=== PATIENT | male | born 1995 | race Caucasian/White ===

== ENCOUNTER 2017-05-11 20:01 | Emergency (ER) | payer OTHER ==
[2017-05-11] MEDS: KETOROLAC 60 MG/2 ML VIAL (J1885) IM (22:20)
== END 2017-05-11 23:39 | disposition home or self-care (01) ==
LOC: M ED 20:01
DX: S29.012A Strain of muscle and tendon of back wall of thorax, initial encounter (principal); X50.0XXA Overexertion from strenuous movement or load, initial encounter; Y92.89 Other specified places as the place of occurrence of the external cause; F17.210 Nicotine dependence, cigarettes, uncomplicated
CPT/HCPCS: J1885

== ENCOUNTER 2018-11-12 06:46 | Inpatient (IN) | payer OTHER ==
[~2018-11-12] VITALS: Ht 180.3 cm; Wt 75.0 kg
[2018-11-12] VITALS (8 sets, daily range): BP systolic 114–119; BP diastolic 58–76
[~2018-11-12 06:46] MED LIST: CYCL10TA PO; KETO10TAB PO
[2018-11-12] MEDS ORDERED: NS 1,000 ML IV ONE (07:15)
[2018-11-12] MEDS ORDERED: MORPHINE 4 MG/ML 1ML VIAL/SYRINGE (J2270) IV ONE (07:15)
[2018-11-12] MEDS ORDERED: ONDANSETRON 4MG/2ML VIAL (J2405) IV ONE (07:15)
[2018-11-12 07:31] LABS: BASO # 0.1 10^3/uL (0.0-0.2); BASO % 0.4 % (0.0-1.0); EOS # 0.5 10^3/uL (0.0-0.5); EOS % 3.4 % (0.0-3.0); HEMATOCRIT 46.2 % (42.0-52.0); HEMOGLOBIN 15.8 g/dl (13.5-17.5); LYMPH # 1.3 10^3/uL (1.5-5.0); LYMPH % 9.7 % (24.0-44.0); MEAN CORPUSCULAR HGB CONC 34.2 g/dl (32.0-36.5); MEAN CORPUSCULAR VOLUME 93.5 fl (80.0-96.0); MONO # 0.7 10^3/uL (0.0-0.8); MONO % 5.3 % (0.0-5.0); NEUTROPHILS # 10.6 10^3/uL (1.5-8.5); NEUTROPHILS % 80.8 % (36.0-66.0); PLATELET COUNT, AUTOMATED 316 10^3/uL (150-450); RED BLOOD COUNT 4.94 10^6/uL (4.30-6.10); WHITE BLOOD COUNT 13.2 10^3/uL (4.0-10.0)
[2018-11-12 07:54] LABS: ALBUMIN 3.9 GM/DL (3.2-5.2); ALT/SGPT 16 U/L (12-78); AMYLASE 61 U/L (25-115); BILIRUBIN,DIRECT 0.1 MG/DL (0.0-0.2); BILIRUBIN,TOTAL 0.4 MG/DL (0.2-1.0); BLOOD UREA NITROGEN 16 MG/DL (7-18); CALCIUM LEVEL 9.5 MG/DL (8.5-10.1); CARBON DIOXIDE LEVEL 27 MEQ/L (21-32); CHLORIDE LEVEL 105 MEQ/L (98-107); CREATININE FOR GFR 1.22 MG/DL (0.70-1.30); GLOMERULAR FILTRATION RATE > 60.0 (>60); GLUCOSE, FASTING 132 MG/DL (70-100); LIPASE 328 U/L (73-393); POTASSIUM SERUM 4.5 MEQ/L (3.5-5.1); SODIUM LEVEL 140 MEQ/L (136-145); TOTAL PROTEIN 7.1 GM/DL (6.4-8.2)
[2018-11-12] MEDS ORDERED: ISOVUE-370 76% 100ML VIAL (Q9967) As Ordered ONE (07:58)
[2018-11-12] MEDS ORDERED: PIPERACILLIN/TAZOBACTAM SOD 4.5 GM in D5W MINI-BAG PLUS 50 ML IV ONE (08:30)
[2018-11-12] MEDS: SENOKOT S TAB PO SCH ×2 (09:00→20:16)
[2018-11-12] MEDS ORDERED: propofoL 200 MG/20 ML VIAL As Ordered ONE (09:04)
[2018-11-12] MEDS ORDERED: ROCURONIUM BROMIDE 50 MG/5 ML VIAL As Ordered ONE (09:04)
[2018-11-12] MEDS ORDERED: LIDOCAINE 2% INJ 100 MG/5 ML SDV (FOR ANES.) As Ordered ONE (09:04)
[2018-11-12] MEDS ORDERED: fentaNYL 250 MCG/5 ML INJECTION (J3010) As Ordered ONE (09:05)
[2018-11-12] MEDS ORDERED: MIDAZOLAM INJ 2 MG/2 ML VIAL (J2250) As Ordered ONE (09:05)
[2018-11-12] MEDS ORDERED: ACETAMINOPHEN TAB 650MG DOSE (2X325MG) PO PRN (09:15)
[2018-11-12] MEDS ORDERED: ONDANSETRON 4MG/2ML VIAL (J2405) IV PRN ×2 (09:15→11:15)
[2018-11-12] MEDS ORDERED: BUPIVACAINE/EPIN 0.25% 30 ML VIAL As Ordered ONE (09:20)
--- NOTE | 2018-11-12 09:27 | HPE ---
DATE OF ADMISSION: 11/12/2018 REASON FOR CONSULTATION: Abdominal pain. HISTORY OF PRESENT ILLNESS: The patient is a 23-year-old male who is has had middle upper back pain for about 5-6 months now. He has also had increasing pain for the past couple weeks. Because of that he has been taking over 20 Advil a day, some of which was on an empty stomach to assist with pain. He also smokes about a pack a week. Coffee once every morning. Minimal other caffeine. Minimal alcohol and no problems with spicy or acidic foods. He had sudden onset of sharp epigastric pain a couple of hours prior to admission to the emergency room. When he came to the ER he was very tender in the abdomen. Had a CT scan done which showed signs of a perforated viscus likely coming from the upper abdomen either gastric or duodenal. He also had an elevated white count in the ER. Therefore, I was called to evaluate. He is now planning to come up to the operating room (OR) with me for emergent procedure. PAST MEDICAL HISTORY: Back pain. PAST SURGICAL HISTORY: None. ALLERGIES: None. HOME MEDICATIONS: Advil. SOCIAL HISTORY: He smokes a pack a week. Social alcohol, no drugs. FAMILY HISTORY: Noncontributory. REVIEW OF SYSTEMS: Pertinent positives as stated in history of present illness (HPI). PHYSICAL EXAMINATION: GENERAL: Alert and oriented times three. No acute stress. VITALS: Temperature 91, pulse 84, respirations 18, blood pressure 125/68, pulse ox 90% room air. HEENT: Pupils equally round react to light and accommodation. HEART: S1, S2 regular rate. LUNGS: Clear to auscultation bilaterally. ABDOMEN: Soft, tender to palpation epigastrium with localized guarding. EXTREMITIES: No clubbing, cyanosis or edema. LABORATORY DATA: White count 13.2, hemoglobin 15.8, platelets 316. Potassium 4.5, creatinine 1.22. IMAGING STUDIES: CT abdomen and pelvis was obtained which shows free air in the abdomen consistent with intestinal perforation, most of it is in the upper abdomen. There is mural thickening and deformity of the distal antrum and duodenum with likely perforated upper gastrointestinal (GI) a ulcer. There is some ascites. The appendix is surrounded by peritoneal fluid but appears normal with mild ileus pattern. ASSESSMENT/PLAN: The patient is a 23-year-old male with signs of likely perforated gastric versus duodenal ulcer. Recommendation to proceed with laparoscopic repair of the perforated viscus. Risks and benefits of the procedure not limited but including bleeding, infection, hernia formation, damage to surrounding structure, need for further surgery discussed in detail with the patient. Informed was obtained and the procedure was planned. Postoperatively, I will keep him in the hospital for least 3-5 days to give this ulcer a chance to heal. Once he is tolerating a diet and there is no signs of any further leakage he will be discharged home.
[2018-11-12] MEDS ORDERED: dexameTHASONE 4 MG/ML 1ML VIAL (J1100) As Ordered ONE (09:46)
[2018-11-12] MEDS ORDERED: PHENYLephrine HCL 500 MCG/5 ML (100MCG/ML) SYRINGE (J2370) As Ordered ONE (09:56)
[2018-11-12] MEDS ORDERED: ONDANSETRON 4MG/2ML VIAL (J2405) As Ordered ONE (10:01)
[2018-11-12] MEDS ORDERED: NEOSTIGMINE 10 MG/10 ML VIAL (J2710) As Ordered ONE ×2 (10:01→10:02)
[2018-11-12] MEDS ORDERED: GLYCOPYRROLATE INJ 0.2 MG/ML 2 ML VIAL As Ordered ONE (10:02)
[2018-11-12] MEDS ORDERED: KETOROLAC 60 MG/2 ML VIAL (J1885) As Ordered ONE (10:06)
[2018-11-12] MEDS ORDERED: LR 1,000 ML IV SCH (11:15)
[2018-11-12] MEDS ORDERED: fentaNYL 100 MCG/2 ML INJECTION (J3010) As Ordered ONE (11:27)
[2018-11-12] MEDS: fentaNYL 100 MCG/2 ML INJECTION (J3010) IV PRN ×4 (11:30→11:45)
--- NOTE | 2018-11-12 12:40 | REP ---
CT ABDOMEN AND PELVIS WITH IV CONTRAST: HISTORY: Abdomen pain guarding. CT CONTRAST DOSE: 100 mL of intravenous Isovue [address] FINDINGS: Preliminary digital vacuum drier tender radiograph is unremarkable. The lung bases are clear on axial CT images. Liver and the spleen are unremarkable. No abnormalities noted in the pancreas. There are gallstones in the gallbladder lumen. No adrenal or renal abnormality is observed. There is a moderate amount of free intraperitoneal air in the upper abdomen anteriorly consistent with bowel perforation. There is some mural thickening in the distal antrum, with fluid and mild deformity in what appears to be the duodenal bulb suggesting the possibility of a upper gastrointestinal perforation perhaps perforated ulcer. There is a mild amount of pelvic ascites. A normal appearing air-filled appendix is seen in the right lower quadrant surrounded by minimal ascites. There are several normal-sized mesenteric lymph nodes. There is an air and fluid filled loop of small intestine in the left mid abdomen which is borderline caliber. No obstructive lesion is appreciated. This is most likely technical services representative of ileus. No pelvic mass or adenopathy is seen. Urinary bladder prostate and seminal vesicles are unremarkable. No abdominal wall defect is observed. No bony destructive lesion is seen. IMPRESSION: There is free air in the abdomen consistent with intestinal perforation. Most of free air is seen in the upper abdomen there is mural thickening and some deformity of the distal antrum and duodenum; question perforated upper GI ulcer. There is ascites. The appendix is surrounded by peritoneal fluid but appears normal. Mild ileus pattern. This report is telephoned to the referring provider Dr. Ananth Soto at 08:25 a.m. Electronically Signed by Hilario Ventura MD 11/12/2018 01:14 P
--- NOTE | 2018-11-12 12:57 | RO ---
DATE OF PROCEDURE: 11/12/2018 PREOPERATIVE DIAGNOSIS: Perforated viscus. POSTOPERATIVE DIAGNOSIS: Perforated duodenal ulcer. PROCEDURE: Laparoscopic repair of perforated duodenal ulcer with a Boogie patch. SURGEON: Avery Huertas DO ASSIST: None. ANESTHESIA: General. ESTIMATED BLOOD LOSS (EBL): 5. COMPLICATION: None. INDICATION FOR PROCEDURE: The patient is a 23-year-old male who presents with epigastric pain, found to have perforated upper abdominal viscus on a CT. After a history, it sounds like he has been taking Advil over twenty pills a day. This is likely the result of a perforation. Recommendation is to proceed with laparoscopic repair. Risks and benefits of the procedure not limited but including bleeding, infection, hernia formation, damage to surrounding structures, need for further surgery were discussed in detail with the patient. Informed consent was obtained, and procedure was planned. DESCRIPTION OF PROCEDURE: The patient was brought back to operating room #3. After sufficient sedation, the abdomen was sterilely prepped and draped. Next, time-out was done to confirm proper patient and proper procedure. Following that, a 5-mm incision made in the left lower quadrant. Veress needle was inserted. The abdomen was insufflated to 15 mmHg. Next, the 5-mm incision was made supraumbilical in the midline. A 5-mm Optiview port was used to gain access to the abdomen. Once the abdomen was entered, Veress needle site was examined. There were no signs of any injury. Veress needle was then removed. Another 5- mm port was then placed into the left upper quadrant, another 5-mm port in the right midabdomen. The bed was placed in reverse Trendelenburg. The upper abdomen was examined, and there was an anterior duodenal bulb ulcer identified approximately 3-4 mm in diameter with succus drainage from it. The free fluid in the abdomen was aspirated out using 2-0 silk sutures. I was able place two interrupted laparoscopic sutures to close the defect. I left the tails long on the second stitch and placed a little chunk of omentum in between the two tails of the suture and then tied those together to hold the omentum in place as a Boogie patch. Once that was completed, some Tisseel was placed underneath the Boogie patch. The abdomen was irrigated with saline. A 19-Romanian Abram drain was placed in the subhepatic fossa and then brought out through the right-sided port site. The abdomen was then desufflated. Skin incisions were closed with charleen. Drain was sutured in place with 2-0 silk. The abdomen cleaned and dried. 4 x 4 and tape were applied, thus ending the procedure. VISHNUD
[2018-11-12] MEDS: KCL 20MEQ IN D5/0.45NS 1000ML 1,000 ML IV SCH ×2 (12:58→17:05)
[2018-11-12] MEDS: PANTOPRAZOLE 40MG INJ (PROTONIX) (C9113) IV SCH ×2 (13:15→23:07)
[2018-11-12] MEDS: FLUCONAZOLE 100 MG in IV 1 EA IV SCH (13:15)
[2018-11-12] MEDS: MORPHINE 4 MG/ML 1ML VIAL/SYRINGE (J2270) IV PRN ×3 (13:29→21:16)
[2018-11-12] MEDS: PIPERACILLIN/TAZOBACTAM SOD 3.375 GM in D5W MINI-BAG PLUS 50 ML IV SCH ×2 (15:38→20:16)
[2018-11-12] MEDS: KETOROLAC 30 MG/ML VIAL (J1885) IV PRN (19:57)
[2018-11-13] MEDS: KCL 20MEQ IN D5/0.45NS 1000ML 1,000 ML IV SCH ×4 (01:04→22:59)
[2018-11-13 02:00] VITALS: BP 118/71
[2018-11-13] MEDS: MORPHINE 4 MG/ML 1ML VIAL/SYRINGE (J2270) IV PRN ×3 (02:36→14:47)
[2018-11-13] MEDS: PIPERACILLIN/TAZOBACTAM SOD 3.375 GM in D5W MINI-BAG PLUS 50 ML IV SCH ×4 (03:04→20:34)
[2018-11-13] MEDS: KETOROLAC 30 MG/ML VIAL (J1885) IV PRN ×3 (05:11→17:36)
[2018-11-13 05:30] LABS: HEMATOCRIT 37.1 % (42.0-52.0); MEAN CORPUSCULAR HEMOGLOBIN 31.6 pg (27.0-33.0); MEAN CORPUSCULAR HGB CONC 34.5 g/dl (32.0-36.5); MEAN CORPUSCULAR VOLUME 91.6 fl (80.0-96.0); PLATELET COUNT, AUTOMATED 276 10^3/uL (150-450); RED BLOOD COUNT 4.05 10^6/uL (4.30-6.10); WHITE BLOOD COUNT 13.1 10^3/uL (4.0-10.0)
[2018-11-13 05:48] LABS: HEMOGLOBIN 12.8 g/dl (13.5-17.5)
[2018-11-13 05:53] LABS: BLOOD UREA NITROGEN 14 MG/DL (7-18); CALCIUM LEVEL 8.7 MG/DL (8.5-10.1); CARBON DIOXIDE LEVEL 28 MEQ/L (21-32); CHLORIDE LEVEL 107 MEQ/L (98-107); CREATININE FOR GFR 1.26 MG/DL (0.70-1.30); GLOMERULAR FILTRATION RATE > 60.0 (>60); GLUCOSE, FASTING 141 MG/DL (70-100); SODIUM LEVEL 142 MEQ/L (136-145)
[2018-11-13 06:00] VITALS: BP 113/73
[2018-11-13] MEDS: SENOKOT S TAB PO SCH ×2 (09:23→20:34)
--- NOTE | 2018-11-13 10:53 | IPNPDOC ---
Text Note Date of Service The patient was seen on 11/13/18. NOTE No acute events overnight. He is tolerating the NGT in place. Minimal drainage from the NGT and the jen drain. Pain is improved. No nausea, emesis, or abd distention. He is ambulating in the room and in the bagley. VSSAF NAD abd - soft, TTP appropriate, incisions c/d/i, drain with some cloudy serous fluid in it. labs - below a) 23y/o male s/p perforated duodenal ulcer repair P) ice and water NGT to LIS ambulate monitor labs abx and diflucan plan on d/c NGT and clear liquid diet in the am Arsh Huertas DO VS,Fishbone, I+O VS, Fishbone, I+O Laboratory Tests 11/13/18 05:19 Red Blood Count 4.05 L, Mean Corpuscular Volume 91.6, Mean Corpuscular Hemoglobin 31.6, Mean Corpuscular Hemoglobin Concent 34.5, Red Cell Distribution Width 13.5, Calcium Level 8.7 Vital Signs Date Time Temp Pulse Resp B/P (MAP) Pulse Ox O2 Delivery O2 Flow Rate FiO2 11/13/18 08:27 17 11/13/18 06:00 98.1 78 113/73 (86) 97 11/12/18 08:39 Room Air I&O- Last 24 Hours up to 6 AM 11/13/18 06:00 Intake Total 2327 ml Output Total 1925 ml Balance 402 ml LEONIDES HUERTAS DO Nov 13, 2018 10:53
[2018-11-13] MEDS: PANTOPRAZOLE 40MG INJ (PROTONIX) (C9113) IV SCH ×2 (11:17→22:59)
[2018-11-13] MEDS: FLUCONAZOLE 100 MG in IV 1 EA IV SCH (12:27)
[2018-11-13] MEDS: SUCRALFATE 1 GM TAB PO SCH ×3 (12:27→20:34)
[2018-11-13 14:00] VITALS: BP 118/76
[2018-11-13] MEDS: NORCO, ANEXSIA 5/325MG TABLET (HYDROcodone/ACETAMINOPHEN) PO PRN (20:34)
[2018-11-13 22:00] VITALS: BP 117/79
[2018-11-14] MEDS: PIPERACILLIN/TAZOBACTAM SOD 3.375 GM in D5W MINI-BAG PLUS 50 ML IV SCH ×4 (02:38→21:58)
[2018-11-14] MEDS: NORCO, ANEXSIA 5/325MG TABLET (HYDROcodone/ACETAMINOPHEN) PO PRN ×4 (05:41→21:57)
[2018-11-14 06:00] VITALS: BP 122/84
[2018-11-14 06:11] LABS: HEMATOCRIT 36.8 % (42.0-52.0); MEAN CORPUSCULAR HEMOGLOBIN 31.1 pg (27.0-33.0); MEAN CORPUSCULAR HGB CONC 32.6 g/dl (32.0-36.5); MEAN CORPUSCULAR VOLUME 95.3 fl (80.0-96.0); PLATELET COUNT, AUTOMATED 228 10^3/uL (150-450); RED BLOOD COUNT 3.86 10^6/uL (4.30-6.10); WHITE BLOOD COUNT 9.2 10^3/uL (4.0-10.0)
[2018-11-14 06:37] LABS: BLOOD UREA NITROGEN 14 MG/DL (7-18); CARBON DIOXIDE LEVEL 29 MEQ/L (21-32); CHLORIDE LEVEL 106 MEQ/L (98-107); GLOMERULAR FILTRATION RATE > 60.0 (>60); GLUCOSE, FASTING 120 MG/DL (70-100); POTASSIUM SERUM 3.9 MEQ/L (3.5-5.1); SODIUM LEVEL 141 MEQ/L (136-145)
[2018-11-14] MEDS: SUCRALFATE 1 GM TAB PO SCH ×4 (08:35→21:57)
[2018-11-14] MEDS: SENOKOT S TAB PO SCH ×2 (08:35→21:57)
[2018-11-14] MEDS: KCL 20MEQ IN D5/0.45NS 1000ML 1,000 ML IV SCH (08:36)
--- NOTE | 2018-11-14 08:41 | IPNPDOC ---
Text Note Date of Service The patient was seen on 11/14/18. NOTE No acute events overnight. He is tolerating the NGT in place. Minimal drainage from the NGT and the jen drain. Pain is much improved. No nausea, emesis, or abd distention. He is ambulating in the room and in the bagley. VSSAF NAD abd - soft, TTP appropriate, incisions c/d/i, drain with some serous fluid in it. labs - below a) 23y/o male s/p perforated duodenal ulcer repair P) dc ngt clq diet ambulate monitor labs abx and diflucan monitor drain color possible dc home tomorrow if drain output does not increase or change colors with diet. Arsh Huertas DO VS,Dario, I+O VS, Dario, I+O Laboratory Tests 11/14/18 05:36 Red Blood Count 3.86 L, Mean Corpuscular Volume 95.3, Mean Corpuscular Hemoglobin 31.1, Mean Corpuscular Hemoglobin Concent 32.6, Red Cell Distribution Width 13.3, Calcium Level 9.0 Vital Signs Date Time Temp Pulse Resp B/P (MAP) Pulse Ox O2 Delivery O2 Flow Rate FiO2 11/14/18 06:15 16 11/14/18 06:00 99.7 59 122/84 (97) 100 11/12/18 08:39 Room Air I&O- Last 24 Hours up to 6 AM 11/14/18 06:00 Intake Total 2675 ml Output Total 800 ml Balance 1875 ml LEONIDES HUERTAS DO Nov 14, 2018 08:41
[2018-11-14] MEDS: PANTOPRAZOLE 40MG INJ (PROTONIX) (C9113) IV SCH ×2 (10:22→21:57)
[2018-11-14] MEDS: FLUCONAZOLE 100 MG in IV 1 EA IV SCH (11:45)
[2018-11-14 14:00] VITALS: BP 120/77
[2018-11-14 22:00] VITALS: BP 122/79
[2018-11-15] MEDS: PIPERACILLIN/TAZOBACTAM SOD 3.375 GM in D5W MINI-BAG PLUS 50 ML IV SCH ×2 (03:31→08:22)
[2018-11-15 06:00] VITALS: BP 132/82
[2018-11-15 06:28] LABS: HEMATOCRIT 34.3 % (42.0-52.0); HEMOGLOBIN 11.4 g/dl (13.5-17.5); MEAN CORPUSCULAR HEMOGLOBIN 30.6 pg (27.0-33.0); MEAN CORPUSCULAR HGB CONC 33.2 g/dl (32.0-36.5); MEAN CORPUSCULAR VOLUME 92.2 fl (80.0-96.0); PLATELET COUNT, AUTOMATED 247 10^3/uL (150-450); RED BLOOD COUNT 3.72 10^6/uL (4.30-6.10); WHITE BLOOD COUNT 7.3 10^3/uL (4.0-10.0)
[2018-11-15] MEDS: NORCO, ANEXSIA 5/325MG TABLET (HYDROcodone/ACETAMINOPHEN) PO PRN (06:39)
[2018-11-15 06:53] LABS: BLOOD UREA NITROGEN 9 MG/DL (7-18); CALCIUM LEVEL 8.9 MG/DL (8.5-10.1); CARBON DIOXIDE LEVEL 29 MEQ/L (21-32); CHLORIDE LEVEL 107 MEQ/L (98-107); GLOMERULAR FILTRATION RATE > 60.0 (>60); GLUCOSE, FASTING 97 MG/DL (70-100); POTASSIUM SERUM 3.6 MEQ/L (3.5-5.1); SODIUM LEVEL 142 MEQ/L (136-145)
[2018-11-15] MEDS: SUCRALFATE 1 GM TAB PO SCH (08:22)
[2018-11-15] MEDS: SENOKOT S TAB PO SCH (08:22)
[2018-11-15] MEDS ORDERED: HYDR-4571 PO (08:59)
[2018-11-15] MEDS ORDERED: OMEP40CA97 PO (08:59)
[2018-11-15] MEDS ORDERED: SUCR1TA PO (08:59)
[2018-11-15] MEDS: PANTOPRAZOLE 40MG INJ (PROTONIX) (C9113) IV SCH (10:47)
--- NOTE | 2018-11-16 07:59 | DSES ---
DATE OF ADMISSION: 11/12/2018 DATE OF DISCHARGE: 11/15/2018 ADMISSION DIAGNOSIS: Perforated duodenal ulcer. DISCHARGE DIAGNOSIS: Perforated duodenal ulcer. HOSPITAL COURSE: The patient is a 23-year-old male who presented with severe pain early in the morning of the . He was found to have a perforated duodenal ulcer. He was brought to the operating room for urgent laparoscopic repair of the ulcer. Postoperatively, he had an nasogastric (NG) tube in place as well as a Abram drain next to his perforation. He did well for the first 36 hours after surgery with minimal NG output and minimal drain output. His white count returned from 13.2 down to 9.2. The NG tube was then removed. He was started on a clear liquid diet. He tolerated 24 hours of a clear liquid diet without any changes in his pain or output from his Abram drain. Today, his Abram drain is removed and he is being discharged home. Will send him home with Carafate, omeprazole twice a day, as well as some [place] for pain. I warned him to stay away from anything that will increase acid production in the stomach, including alcohol, tobacco, caffeine, spicy foods, acidic foods, and any [id number] medications. He understands and will follow up me in the office in week and a half for a followup.
== END 2018-11-15 11:17 | disposition home or self-care (01) | DRG 331 ==
LOC: M ED 06:46 → M SDC 06:47 → M ED INP 09:05 → M MSPAV 12:13
PROVIDERS: ADMIT Surgery; ATTEND Surgery
PROC: 0DU947Z Supplement Duodenum with Autologous Tissue Substitute, Percutaneous Endoscopic Approach (ICD-10-PCS; principal; 2018-11-12 08:39)
DX: K26.5 Chronic or unspecified duodenal ulcer with perforation (principal); F17.200 Nicotine dependence, unspecified, uncomplicated; M54.6 Pain in thoracic spine; Z79.1 Long term (current) use of non-steroidal anti-inflammatories (NSAID)